=== PATIENT | male | born 1955 | race Hispanic/Latino ===

== ENCOUNTER 2023-04-18 11:26 | Emergency (ER) | payer OTHER ==
[~2023-04-18] VITALS: Ht 167.6 cm; Wt 112.0 kg
[2023-04-18 11:34] VITALS: O2SAT 100
[2023-04-18] MEDS ORDERED: DEXAMETHASONE 4 MG TAB PO ONE (11:53)
[2023-04-18] MEDS ORDERED: LIDOCAINE 4% PATCH TP STA (11:53)
[2023-04-18] MEDS ORDERED: KETOROLAC TROMETHAMINE 30 MG/ML VIAL IM ONE (11:53)
[2023-04-18] MEDS ORDERED: LIDOCAINE 4% PATCH TP ONE (12:00)
[2023-04-18] MEDS ORDERED: ACETAMINOPHEN 325 MG TAB PO ONE (12:00)
[2023-04-18] MEDS ORDERED: METHOCARBAMOL500 MG PO (16:01)
== END 2023-04-18 16:15 | disposition home or self-care (01) ==
LOC: ER 11:32
DX: M54.50 Low back pain, unspecified (principal); I10 Essential (primary) hypertension; E11.9 Type 2 diabetes mellitus without complications
CPT/HCPCS: 74176; 99283; J1885; J8540

== ENCOUNTER 2024-06-04 02:15 | Emergency (ER) | payer OTHER ==
[~2024-06-04] VITALS: Ht 167.6 cm; Wt 84.8 kg
[~2024-06-04 02:15] MED LIST: METHOCARBAMOL500 MG PO
[2024-06-04 02:22] VITALS: PULSE 87; RESP 18; TEMP 98.5
[2024-06-04] MEDS: HYDROMORPHONE 1MG/1ML INJ IM STA (02:38)
[2024-06-04] MEDS ORDERED: HYDROMORPHONE 1MG/1ML INJ ONE (02:40)
[2024-06-04 03:06] VITALS: BP 130/64; PULSE 85; RESP 16; TEMP 97.3; O2SAT 100
== END 2024-06-04 03:07 | disposition home or self-care (01) ==
LOC: ER 02:23
DX: M54.50 Low back pain, unspecified (principal); G89.29 Other chronic pain; C61 Malignant neoplasm of prostate; C79.51 Secondary malignant neoplasm of bone; I10 Essential (primary) hypertension; E11.9 Type 2 diabetes mellitus without complications
CPT/HCPCS: 99282; J1170

== ENCOUNTER 2024-10-21 10:34 | Emergency (ER) | payer SELFPAY ==
[~2024-10-21] VITALS: Ht 167.6 cm; Wt 84.8 kg
[2024-10-21 10:47] VITALS: RESP 18; TEMP 97.7
[2024-10-21 11:12] LABS: EOSINOPHILS % 0.7 % (0.0-6.0); LYMPHOCYTES # (AUTO) 0.7 (1.0-3.2); LYMPHOCYTES % 17.3 % (18.0-39.1); MEAN CORPUSCULAR HEMOGLOBIN 37.7 pg (28-32); MEAN CORPUSCULAR HGB CONC 31.3 g/dL (31-35); MEAN CORPUSCULAR VOLUME 120.4 fL (81-99); MONOCYTES # (AUTO) 0.3 (0.2-0.8); MONOCYTES % 8.2 % (4.4-11.3); NEUTROPHILS # (AUTO) 3.1 (2.1-6.9); NEUTROPHILS % 73.3 % (38.7-80.0); RED BLOOD COUNT 1.91 x10e6/uL (4.3-5.7); RED CELL DISTRIBUTION WIDTH 18.9 % (11.7-14.4); WHITE BLOOD COUNT 4.16 x10e3/uL (4.8-10.8)
[2024-10-21 11:15] VITALS: PULSE 69
[2024-10-21 11:25] LABS: HEMOGLOBIN 7.2 g/dL (14.0-18.0)
[2024-10-21 11:26] LABS: PLATELET COUNT 51 x10e3/uL (140-360)
[2024-10-21 11:37] LABS: ANION GAP 13.2 mmol/L (8-16); CALCIUM 7.7 mg/dL (8.4-10.2); CREATININE, SERUM 1.03 mg/dL (0.72-1.25); POTASSIUM 4.2 mmol/L (3.5-5.1)
[2024-10-21 12:30] VITALS: BP 154/71; PULSE 68; RESP 16; TEMP 98.1; O2SAT 100
== END 2024-10-21 12:30 | disposition home or self-care (01) ==
LOC: ER 10:46
DX: D64.9 Anemia, unspecified (principal); D69.6 Thrombocytopenia, unspecified; I10 Essential (primary) hypertension; E11.9 Type 2 diabetes mellitus without complications; Z85.46 Personal history of malignant neoplasm of prostate; Z85.830 Personal history of malignant neoplasm of bone
CPT/HCPCS: 36415; 80048; 85025; 86850; 86900; 99284

== ENCOUNTER 2024-12-02 04:10 | Emergency (ER) | payer MEDICARE ==
[~2024-12-02] VITALS: Ht 167.6 cm; Wt 90.7 kg
[2024-12-02 04:27] VITALS: PULSE 76; RESP 20; TEMP 98.4
[2024-12-02] MEDS ORDERED: LASIX20 MG PO (04:27)
[2024-12-02] MEDS: HYDROMORPHONE 1MG/1ML INJ IM STA (04:43)
[2024-12-02 05:13] VITALS: BP 129/64; PULSE 71; RESP 17; TEMP 98.3; O2SAT 96
== END 2024-12-02 05:16 | disposition home or self-care (01) ==
LOC: ER 04:15
DX: M54.9 Dorsalgia, unspecified (principal); G89.29 Other chronic pain; I10 Essential (primary) hypertension; E11.9 Type 2 diabetes mellitus without complications; D64.9 Anemia, unspecified; Z85.46 Personal history of malignant neoplasm of prostate; Z85.830 Personal history of malignant neoplasm of bone
CPT/HCPCS: 99283; J1171

== ENCOUNTER 2024-12-31 10:09 | Emergency (ER) | payer MEDICARE ==
[~2024-12-31] VITALS: Ht 167.6 cm; Wt 90.7 kg
[~2024-12-31 10:09] MED LIST changes: +LASIX20 MG PO
[2024-12-31 10:23] VITALS: RESP 16; TEMP 98.1
[2024-12-31] MEDS ORDERED: LIDOCAINE JELLY 2% 10ML URO-JET ONE (10:24)
[2024-12-31] MEDS: LIDOCAINE JELLY 2% 10ML URO-JET TOP ONE (11:01)
[2024-12-31 12:14] VITALS: PULSE 79; O2SAT 98
[2024-12-31] MEDS ORDERED: CEFDINIR300 MG PO (12:27)
== END 2024-12-31 13:58 | disposition home or self-care (01) ==
LOC: ER 10:18
DX: R33.9 Retention of urine, unspecified (principal); C61 Malignant neoplasm of prostate; I10 Essential (primary) hypertension; E11.9 Type 2 diabetes mellitus without complications; D64.9 Anemia, unspecified; Z79.60 Long term (current) use of unspecified immunomodulators and immunosuppressants
CPT/HCPCS: 51700; 87086; 99284